=== PATIENT | male | born 1945 | race Caucasian/White ===

== ENCOUNTER 2018-03-29 13:02 | Emergency (ER) | payer MEDICARE, MEDICAID ==
[~2018-03-29] VITALS: Ht 170.2 cm; Wt 62.0 kg
[2018-03-29] MEDS ORDERED: PENI250T2 PO (13:28)
[2018-03-29 13:40] VITALS: BP 169/85
== END 2018-03-29 13:42 | disposition home or self-care (01) ==
LOC: ER 13:03
DX: K04.7 Periapical abscess without sinus (principal); R59.1 Generalized enlarged lymph nodes
CPT/HCPCS: 99283